=== PATIENT | male | born 1975 | race Caucasian/White ===

== ENCOUNTER 2017-05-11 10:35 | Outpatient (CLI) | payer BC ==
[2017-05-11 12:40] LABS: ALT (SGPT) 15 U/L (8-55); AST (SGOT) 16 U/L (5-34); Albumin 4.6 g/dL (3.5-5.0); Alkaline Phosphatase 58 U/L (40-150); Anion Gap 15 mmol/L (10-20); BUN (Urea Nitrogen) 5 mg/dL (8.9-20.6); Bilirubin, Total 1.1 mg/dL (0.2-1.2); Calc. Creatinine Clearance 0 mL/min (70-130); Calcium 9.2 mg/dL (7.8-10.44); Carbon Dioxide 24 mmol/L (22-29); Cardiac Risk 2.5 (Less than 4.5); Chloride 106 mmol/L (98-107); Cholesterol 128 mg/dl (< 200 Desired); Estimated GFR-MDRD 87; Globulin 2.6 g/dL (2.4-3.5); Glucose 95 mg/dL (70-105); HDL Cholesterol 52 mg/dL (>60 Neg Risk); LDL Cholesterol, Calculated 66 mg/dL; Potassium 4.2 mmol/L (3.5-5.1); Protein, Total 7.2 g/dL (6.0-8.3); Sodium 141 mmol/L (136-145); Triglycerides 48 mg/dL (Less than 150)
== END 2017-05-11 10:36 | disposition home or self-care (01) ==
LOC: BURLAB 10:35
PROVIDERS: ATTEND Family Medicine
DX: Z00.00 Encounter for general adult medical examination without abnormal findings (principal)
CPT/HCPCS: 36415; 80053; 80061

== ENCOUNTER 2021-01-01 13:40 | Emergency (ER) | payer BC ==
[2021-01-01 14:49] LABS: Red Blood Cell (RBC) Count 5.24 mill/uL (4.70-6.10); White Blood Cell (WBC) Count 9.5 thou/uL (4.8-10.8)
[2021-01-01 14:50] LABS: %Eosinophils 0.4 % (0.0-10.0); %Lymphocytes 10.7 % (21.0-51.0); %Neutrophils 82.5 % (42.0-75.0); Hemoglobin 16.2 g/dL (14.0-18.0); Manual Diff?? YES; Mean Corpuscular Hemoglobin 30.9 pg (27.0-31.0); Mean Platelet Volume 5.9 fL (7.4-10.4); Platelet Count 377 thou/uL (130-400); RBC Distribution Width 10.7 % (11.5-14.5)
[2021-01-01 14:51] LABS: #Basophils 0.1 thou/uL (0.0-0.2); #Monocytes 0.6 thou/uL (0.11-0.59); #Neutrophils 7.8 thou/uL (1.40-6.50); %Basophils 0.5 % (0.0-1.0); MDiff Complete? YES
[2021-01-01] MEDS ORDERED: Albuterol 200 PUFF (6.7GM INHALER) ONE (14:54)
[2021-01-01] MEDS ORDERED: Dexamethasone 10 MG/ML VIAL ONE (15:03)
[2021-01-01 15:20] LABS: Anion Gap 16 mmol/L (10-20); BUN (Urea Nitrogen) 9 mg/dL (8.9-20.6); Bilirubin, Total 0.5 mg/dL (0.2-1.2); Calc. Creatinine Clearance 0 mL/min (70-130); Calcium 9.3 mg/dL (7.8-10.44); Carbon Dioxide 27 mmol/L (22-29); Chloride 101 mmol/L (98-107); Glucose 136 mg/dL (70-105); Potassium 4.3 mmol/L (3.5-5.1); Protein, Total 7.5 g/dL (6.0-8.3); Sodium 140 mmol/L (136-145)
[2021-01-01 15:21] LABS: ALT (SGPT) 106 U/L (8-55); AST (SGOT) 57 U/L (5-34); Albumin 4.2 g/dL (3.5-5.0); Alkaline Phosphatase 113 U/L (40-110); Globulin 3.3 g/dL (2.4-3.5)
[2021-01-01] MEDS ORDERED: Doxycycline 100 MG CAP ONE (16:22)
--- NOTE | 2021-01-01 17:58 | RAD ---
PORTABLE CHEST: Date: 01-01-2021 An AP portable film at 1504 is presented with no prior films available for comparison. FINDINGS: A patchy opacity is seen in the left hilar region. It is difficult to completely evaluate because the patient is turned significantly to the side. There may be some patchy areas in the left hilar region as well, but this is less certain. No large effusions are present, but there might be slight bluntin g of the right costophrenic angle. The heart size is normal. There is no vascular congestion or edema . IMPRESSION: Increased right hilar opacity. After initial treatment, a repeat better-centered chest radiograph nee ds to be done to rule out further pathology. Code T POS: HOME
[2021-01-01 20:13] LABS: SARS-CoV-2 NAA Rapid Test Not Detected (NotDetected)
== END 2021-01-01 16:30 | disposition home or self-care (01) ==
LOC: BURERS 13:40
DX: J18.9 Pneumonia, unspecified organism (principal); Z20.822 Contact with and (suspected) exposure to COVID-19
CPT/HCPCS: 0240U; 36415; 71045; 80053; 83880; 84484; 85025; 93005; 96374; J1100

== ENCOUNTER 2021-01-20 04:27 | Emergency (ER) | payer BC ==
[2021-01-20 05:44] LABS: #Basophils 0.2 thou/uL (0.0-0.2); #Eosinphils 0.7 thou/uL (0.0-0.7); #Lymphocytes 2.8 thou/uL (1.20-3.40); #Monocytes 0.9 thou/uL (0.11-0.59); #Neutrophils 5.7 thou/uL (1.40-6.50); %Basophils 2.1 % (0.0-1.0); %Eosinophils 7.1 % (0.0-10.0); %Lymphocytes 27.2 % (21.0-51.0); %Monocytes 8.5 % (0.0-10.0); %Neutrophils 55.1 % (42.0-75.0); Hemoglobin 15.7 g/dL (14.0-18.0); Mean Corpuscular Hemoglobin 31.3 pg (27.0-31.0); Mean Corpuscular Volume 92.2 fL (78.0-98.0); Mean Platelet Volume 5.9 fL (7.4-10.4); Platelet Count 391 thou/uL (130-400); RBC Distribution Width 11.1 % (11.5-14.5); Red Blood Cell (RBC) Count 5.02 mill/uL (4.70-6.10); White Blood Cell (WBC) Count 10.4 thou/uL (4.8-10.8)
[2021-01-20 05:56] LABS: ALT (SGPT) 27 U/L (8-55); AST (SGOT) 18 U/L (5-34); Alkaline Phosphatase 107 U/L (40-110); BUN (Urea Nitrogen) 6 mg/dL (8.9-20.6); Bilirubin, Total 0.3 mg/dL (0.2-1.2); Calc. Creatinine Clearance 0 mL/min (70-130); Calcium 8.9 mg/dL (7.8-10.44); Carbon Dioxide 29 mmol/L (22-29); Chloride 80 mmol/L (98-107); Globulin 2.9 g/dL (2.4-3.5); Glucose 93 mg/dL (70-105); Protein, Total 6.9 g/dL (6.0-8.3)
[2021-01-20 05:57] LABS: Potassium 2.3 mmol/L (3.5-5.1)
[2021-01-20] MEDS ORDERED: Potassium Chloride 20 MEQ TAB ONE (06:02)
[2021-01-20 06:15] LABS: Sodium 143 mmol/L (136-145)
[2021-01-20 06:34] LABS: Chloride 103 mmol/L (98-107); Potassium 3.4 mmol/L (3.5-5.1); Sodium 143 mmol/L (136-145)
[2021-01-20] MEDS ORDERED: cefTRIAXone\\ROCEPHIN 2 GM VIAL ONE (06:38)
[2021-01-20 06:42] LABS: Carbon Dioxide 24 mmol/L (22-29)
[2021-01-20 06:49] LABS: Anion Gap 19 mmol/L (10-20)
== END 2021-01-20 07:20 | disposition short-term general hospital (02) ==
LOC: BURERS 04:27
DX: J18.9 Pneumonia, unspecified organism (principal); J90 Pleural effusion, not elsewhere classified
CPT/HCPCS: 36415; 71045; 71260; 80053; 83605; 85025; 87040; 96365; 96375; J0696; J3370